=== PATIENT | female | born 1940 | race Caucasian/White ===

== ENCOUNTER 2020-02-28 00:14 | Emergency (ER) | payer MEDICARE, OTHER ==
[2020-02-28 03:27] LABS: HEMOGLOBIN 14.7 gm/dl (12.3-15.3); RED BLOOD COUNT 5.07 M/UL (4.00-5.10); WHITE BLOOD COUNT 11.5 K/UL (4.5-11.0)
[2020-02-28 03:50] LABS: BUN/CREATININE RATIO 29 (0-10)
== END 2020-02-28 06:15 | disposition home or self-care (01) ==
LOC: ER1 00:14
PROVIDERS: Emergency Medicine
DX: I10 Essential (primary) hypertension (principal); Z95.5 Presence of coronary angioplasty implant and graft
CPT/HCPCS: 71045; 80053; 82550; 82553; 83874; 84484; 85025; 85379; 93005; 99285

== ENCOUNTER 2020-04-24 11:41 | Inpatient (IN) | payer MEDICARE, OTHER ==
[~2020-04-24] VITALS: Ht 154.9 cm; Wt 81.6 kg
[2020-04-24 13:43] LABS: HEMOGLOBIN 14.7 gm/dl (12.3-15.3); RED BLOOD COUNT 5.01 M/UL (4.00-5.10); WHITE BLOOD COUNT 5.1 K/UL (4.5-11.0)
[2020-04-24 13:58] LABS: BUN/CREATININE RATIO 24 (0-10)
[2020-04-24] MEDS ORDERED: AMLODIPINE BESY10 MG PO (16:48)
[2020-04-24] MEDS ORDERED: LEVOTHYROXINE88 MCG PO (16:48)
[2020-04-24] MEDS ORDERED: CELECOXIB200 MG PO (16:49)
[2020-04-24] MEDS ORDERED: MONTELUKAST SOD10 MG PO (16:49)
[2020-04-24] MEDS ORDERED: BREO ELLIPTA 21 EACH INH (16:50)
[2020-04-24] MEDS ORDERED: ATORVASTATIN CA10 MG PO (16:50)
[2020-04-24] MEDS ORDERED: VITAMIN D325 MC6 PO (16:51)
[2020-04-24] MEDS ORDERED: PANTOPRAZOLE SO20 MG PO (16:51)
[2020-04-24] MEDS ORDERED: ASPIRIN EC81 MG PO (16:52)
[2020-04-24] MEDS ORDERED: DAILY VITAMIN1 EAC2 PO (16:52)
[2020-04-24] MEDS ORDERED: AVODART 0.5 MG0.5 MG PO (16:53)
[2020-04-24] MEDS ORDERED: CITRACAL D + H1 EACH PO (16:54)
[2020-04-24] MEDS ORDERED: PROLIA INJ60 MG/1 ML SC (17:27)
[2020-04-25 04:35] LABS: HEMOGLOBIN 13.6 gm/dl (12.3-15.3); RED BLOOD COUNT 4.71 M/UL (4.00-5.10); WHITE BLOOD COUNT 4.5 K/UL (4.5-11.0)
[2020-04-25 04:53] LABS: BUN/CREATININE RATIO 30 (0-10)
--- NOTE | 2020-04-25 15:21 | NUR ---
PATIENT REFUSES PLASMA TRANSFUSION.
[2020-04-26 06:22] LABS: HEMOGLOBIN 14.2 gm/dl (12.3-15.3); RED BLOOD COUNT 4.86 M/UL (4.00-5.10)
[2020-04-26 06:27] LABS: WHITE BLOOD COUNT 10.6 K/UL (4.5-11.0)
[2020-04-26 07:04] LABS: BUN/CREATININE RATIO 33 (0-10)
--- NOTE | 2020-04-26 13:11 | NUR ---
PATIENT'S OXYGEN SATURATION IS 87% ON RA AT REST. OXYGEN SATURATIONS ARE MAINTAINED ON 3 LPM/ NC.
[2020-04-28 03:19] LABS: HEMOGLOBIN 14.9 gm/dl (12.3-15.3); RED BLOOD COUNT 5.13 M/UL (4.00-5.10)
[2020-04-28 03:29] LABS: BUN/CREATININE RATIO 28 (0-10)
[2020-04-28] MEDS ORDERED: DEXAMETHASONE1 MG PO (15:06)
== END 2020-04-28 18:00 | disposition home or self-care (01) | DRG 177 ==
LOC: ER1 11:41 → MED SURG 4 16:19 → CDU 16:19 → MED SURG 4 19:25
PROVIDERS: Emergency Medicine; Internal Medicine; ADMIT Internal Medicine
PROC: 8E0ZXY6 Isolation (ICD-10-PCS; principal; 2020-04-24)
PROC: XW033E5 Introduction of Remdesivir Anti-infective into Peripheral Vein, Percutaneous Approach, New Technology Group 5 (ICD-10-PCS; 2020-04-24)
PROC: 3E0333Z Introduction of Anti-inflammatory into Peripheral Vein, Percutaneous Approach (ICD-10-PCS; 2020-04-24)
DX: U07.1 COVID-19 (principal); J12.82 Pneumonia due to coronavirus disease 2019; J96.01 Acute respiratory failure with hypoxia; E03.9 Hypothyroidism, unspecified; I10 Essential (primary) hypertension; I25.10 Atherosclerotic heart disease of native coronary artery without angina pectoris; Z95.5 Presence of coronary angioplasty implant and graft; M19.90 Unspecified osteoarthritis, unspecified site; Z90.49 Acquired absence of other specified parts of digestive tract; J45.909 Unspecified asthma, uncomplicated; Z79.82 Long term (current) use of aspirin; Z90.710 Acquired absence of both cervix and uterus; D69.59 Other secondary thrombocytopenia
CPT/HCPCS: 36415; 36600; 71045; 80048; 80053; 82550; 82553; 82803; 82962; 83605; 83874; 84484; 85025; 85027; 86900; 86901; 87040; 93005; 94640; 94664; 94760; 96374; 99285; J1100; J1650; J7030

== ENCOUNTER → 2020-05-20 | Outpatient (CLI) | payer MEDICARE, OTHER ==
[~2020-05-20] MED LIST: AMLODIPINE BESY10 MG PO; ASPIRIN EC81 MG PO; ATORVASTATIN CA10 MG PO; AVODART 0.5 MG0.5 MG PO; BREO ELLIPTA 21 EACH INH; CELECOXIB200 MG PO; CITRACAL D + H1 EACH PO; DAILY VITAMIN1 EAC2 PO; DEXAMETHASONE1 MG PO; LEVOTHYROXINE88 MCG PO; MONTELUKAST SOD10 MG PO; PANTOPRAZOLE SO20 MG PO; PROLIA INJ60 MG/1 ML SC; VITAMIN D325 MC6 PO
== END ==
LOC: HEART 5 16:39
DX: J44.9 Chronic obstructive pulmonary disease, unspecified (principal)
CPT/HCPCS: 94010

== ENCOUNTER 2020-12-23 15:13 | Emergency (ER) | payer MEDICARE, OTHER ==
[2020-12-23 16:03] LABS: HEMOGLOBIN 14.5 gm/dl (12.3-15.3); RED BLOOD COUNT 4.93 M/UL (4.00-5.10)
[2020-12-23 16:46] LABS: BUN/CREATININE RATIO 25 (0-10)
== END 2020-12-23 20:02 | disposition home or self-care (01) ==
LOC: ER1 15:13
PROVIDERS: Student in an Organized Health Care Education/Training Program
DX: R07.9 Chest pain, unspecified (principal); I11.9 Hypertensive heart disease without heart failure; E78.5 Hyperlipidemia, unspecified; E07.9 Disorder of thyroid, unspecified; Z87.891 Personal history of nicotine dependence
CPT/HCPCS: 71045; 80053; 82550; 82553; 83874; 84484; 85025; 85379; 93005; 99285